=== PATIENT | male | born 1975 | race African-American/Black ===

== ENCOUNTER 2022-09-19 14:36 | Inpatient (IN) | payer OTHER ==
[~2022-09-19 14:36] MED LIST: Iopamidol 300 61% 100 ML VIAL FS ONE
[2022-09-19 15:43] LABS: Lavender RECEIVED; Red RECEIVED
[2022-09-19 15:51] LABS: #Basophils 0.1 10x3/uL (0.0-0.2); #Eosinphils 0.3 10x3/uL (0.0-0.5); #Monocytes 0.6 10x3/uL (0.0-1.1); #Neutrophils 5.4 10x3/uL (1.5-8.4); %Basophils 0.6 % (0.0-2.0); %Eosinophils 2.9 % (0.0-6.0); %Lymphocytes 28.5 % (18.0-47.0); %Monocytes 6.7 % (0.0-10.0); %Neutrophils 61.1 % (40.0-75.0); Hemoglobin 12.5 g/dL (13.5-17.5); Mean Corpuscular HGB CONC 31.2 g/dL (32.0-36.0); Mean Corpuscular Hemoglobin 27.1 pg (27.0-33.0); Mean Corpuscular Volume 86.8 fl (81.2-95.1); Mean Platelet Volume 9.6 fl (7.4-10.4); Platelet Count 268 10x3/uL (150-450); RBC Distribution Width 14.1 % (11.5-14.5); Red Blood Cell (RBC) Count 4.62 10x6/uL (4.32-5.72); White Blood Cell (WBC) Count 8.8 10x3/uL (3.5-10.5)
[2022-09-19 16:03] LABS: ALT (SGPT) 15 U/L (8-55); AST (SGOT) 19 U/L (5-34); Alkaline Phosphatase 224 U/L (40-110); Anion Gap 13 mmol/L (10-20); BUN (Urea Nitrogen) 9 mg/dL (8.9-20.6); Bilirubin, Total 0.4 mg/dL (0.2-1.2); Calc. Creatinine Clearance 0 mL/min (70-130); Calcium 10.6 mg/dL (7.8-10.44); Carbon Dioxide 24 mmol/L (22-29); Chloride 103 mmol/L (98-107); Estimated GFR 115; Glucose 187 mg/dL (70-105); Potassium 3.9 mmol/L (3.5-5.1); Sodium 136 mmol/L (136-145)
[2022-09-19] MEDS ORDERED: Vancomycin 1 GM VIAL ONE (17:35)
[2022-09-19] MEDS ORDERED: Cefepime 2 GM VIAL ONE (17:36)
[2022-09-19 19:15] LABS: Lactic Acid 1.1 mmol/L (0.5-2.2)
[2022-09-19] MEDS ORDERED: HYDROcodone/Acetaminophen 5/325 mg Tablet PO PRN (21:34)
[2022-09-19] MEDS ORDERED: Dextrose 5% in Water 1,000 ML IV PRN (21:38)
[2022-09-19] MEDS ORDERED: Glucagon 1 MG/ML KIT IM PRN (21:38)
[2022-09-19] MEDS ORDERED: Dextrose 50% Abboject 50 ML SYRINGE SLOW IVP PRN (21:38)
[2022-09-19] MEDS ORDERED: HumaLOG 300 UNITS/3 ML VIAL SC PRN (21:38)
[2022-09-19] MEDS ORDERED: Piperacillin/Tazobactam 3.375 GM in Sodium Chloride 0.9% 100 ML IVPB SCH (22:00)
[2022-09-19] MEDS ORDERED: Piperacillin/Tazobactam 3.375 GM VIAL ONE (22:32)
[2022-09-20] MEDS ORDERED: Piperacillin/Tazobactam 3.375 GM in Sodium Chloride 0.9% 100 ML IVPB SCH (01:00)
[2022-09-20 02:30] VITALS: BMI 31.7
[2022-09-20] MEDS ORDERED: Piperacillin/Tazobactam 3.375 GM VIAL ONE ×2 (02:42→10:13)
[2022-09-20] MEDS: Piperacillin/Tazobactam 3.375 GM in Sodium Chloride 0.9% 100 ML IVPB SCH ×2 (02:56→10:17)
[2022-09-20 04:10] LABS: #Eosinphils 0.3 10x3/uL (0.0-0.5); #Monocytes 0.6 10x3/uL (0.0-1.1); #Neutrophils 4.9 10x3/uL (1.5-8.4); %Basophils 0.4 % (0.0-2.0); %Eosinophils 3.5 % (0.0-6.0); %Lymphocytes 27.9 % (18.0-47.0); %Monocytes 7.4 % (0.0-10.0); %Neutrophils 60.5 % (40.0-75.0); Hemoglobin 11.2 g/dL (13.5-17.5); Mean Corpuscular HGB CONC 32.3 g/dL (32.0-36.0); Mean Corpuscular Hemoglobin 27.1 pg (27.0-33.0); Mean Platelet Volume 9.3 fl (7.4-10.4); Platelet Count 259 10x3/uL (150-450); Red Blood Cell (RBC) Count 4.13 10x6/uL (4.32-5.72)
[2022-09-20 04:23] LABS: ALT (SGPT) 14 U/L (8-55); AST (SGOT) 15 U/L (5-34); Albumin 3.6 g/dL (3.5-5.0); Alkaline Phosphatase 193 U/L (40-110); Anion Gap 13 mmol/L (10-20); BUN (Urea Nitrogen) 8 mg/dL (8.9-20.6); Bilirubin, Total 0.6 mg/dL (0.2-1.2); Calc. Creatinine Clearance 201 mL/min (70-130); Calcium 9.9 mg/dL (7.8-10.44); Carbon Dioxide 22 mmol/L (22-29); Chloride 105 mmol/L (98-107); Estimated GFR 118; Globulin 4.4 g/dL (2.4-3.5); Glucose 158 mg/dL (70-105); Potassium 3.5 mmol/L (3.5-5.1); Sodium 136 mmol/L (136-145)
[2022-09-20] MEDS ORDERED: metFORMIN 500 MG TAB PO SCH (08:00)
[2022-09-20] MEDS ORDERED: Acetaminophen 325 MG TAB PO SCH (09:00)
[2022-09-20] MEDS ORDERED: tiZANidine HCl 4 MG TAB PO SCH (09:00)
[2022-09-20] MEDS ORDERED: Clotrimazole 1% Cream 15 GM TUBE TOP SCH (09:00)
[2022-09-20] MEDS ORDERED: Oxybutynin 5 MG TAB PO SCH (09:00)
[2022-09-20] MEDS ORDERED: carBAMazepine 200 MG TAB PO SCH (09:00)
[2022-09-20] MEDS ORDERED: Ascorbic Acid 500 mg Chewable Tablet PO SCH (09:00)
[2022-09-20] MEDS ORDERED: Zinc Sulfate 220 MG CAP PO SCH (09:00)
[2022-09-20] MEDS ORDERED: Multivit, Therapeutic 1 TAB PO SCH (09:00)
[2022-09-20] MEDS ORDERED: Insulin NPH Human Isophane 100 UNITS/ML (10 ML VIAL) SQ SCH (09:00)
[2022-09-20] MEDS ORDERED: Baclofen 10 MG TAB PO SCH (09:00)
[2022-09-20] MEDS ORDERED: Acetaminophen 325 MG TAB ONE (10:12)
[2022-09-20] MEDS ORDERED: metFORMIN 500 MG TAB ONE (10:12)
[2022-09-20] MEDS ORDERED: Zinc Sulfate 220 MG CAP ONE (10:16)
[2022-09-20] MEDS ORDERED: Ascorbic Acid 500 mg Chewable Tablet ONE (10:16)
[2022-09-20 12:45] VITALS: BP 127/57; TEMP 97.8
[2022-09-20] MEDS ORDERED: Insulin NPH Human Isophane 100 UNITS/ML (10 ML VIAL) SC SCH (21:00)
== END 2022-09-20 15:25 | DRG 872 ==
LOC: EEVIPCON 14:36 → CSHERS 14:36 → CSHERHOLD 20:09
PROVIDERS: ADMIT Internal Medicine; ATTEND Family Medicine
DX: A41.89 Other specified sepsis (principal); L03.115 Cellulitis of right lower limb; S82.251A Displaced comminuted fracture of shaft of right tibia, initial encounter for closed fracture; S82.451A Displaced comminuted fracture of shaft of right fibula, initial encounter for closed fracture; E11.628 Type 2 diabetes mellitus with other skin complications; Z79.899 Other long term (current) drug therapy; Z79.4 Long term (current) use of insulin; Z79.84 Long term (current) use of oral hypoglycemic drugs; K21.9 Gastro-esophageal reflux disease without esophagitis; Z98.890 Other specified postprocedural states; M81.0 Age-related osteoporosis without current pathological fracture; Z88.6 Allergy status to analgesic agent; M19.90 Unspecified osteoarthritis, unspecified site; E11.40 Type 2 diabetes mellitus with diabetic neuropathy, unspecified; F44.4 Conversion disorder with motor symptom or deficit; D64.9 Anemia, unspecified; L97.529 Non-pressure chronic ulcer of other part of left foot with unspecified severity; Z99.3 Dependence on wheelchair; E11.621 Type 2 diabetes mellitus with foot ulcer; W18.30XA Fall on same level, unspecified, initial encounter
CPT/HCPCS: 36415; 36416; 80053; 82550; 83605; 85025; 85652; 86140; 87040; 96374; 96375; 97139; J0692; J1650; J1815; J2543; J3370; J3490; Q9967

== ENCOUNTER 2023-04-25 15:05 | Inpatient (IN) | payer OTHER ==
[2023-04-25] MEDS ORDERED: Acetaminophen 500 MG TAB ONE ×2 (15:48→23:05)
[2023-04-25] MEDS ORDERED: cefTRIAXone (ROCEPHIN) 2 GM VIAL ONE (15:48)
[2023-04-25 16:14] LABS: #Basophils 0.1 10x3/uL (0.0-0.2); #Monocytes 1.5 10x3/uL (0.0-1.1); %Basophils 0.3 % (0.0-2.0); %Eosinophils 0.1 % (0.0-6.0); %Lymphocytes 6.1 % (18.0-47.0); %Neutrophils 86.5 % (40.0-75.0); Hematocrit 40.7 % (38.8-50.0); Hemoglobin 13.3 g/dL (13.5-17.5); Mean Corpuscular HGB CONC 32.7 g/dL (32.0-36.0); Mean Corpuscular Hemoglobin 28.1 pg (27.0-33.0); Mean Corpuscular Volume 85.9 fl (81.2-95.1); Mean Platelet Volume 10.1 fl (7.4-10.4); Platelet Count 263 10x3/uL (150-450); RBC Distribution Width 13.8 % (11.5-14.5); Red Blood Cell (RBC) Count 4.74 10x6/uL (4.32-5.72); White Blood Cell (WBC) Count 24.3 10x3/uL (3.5-10.5)
[2023-04-25 16:24] LABS: ALT (SGPT) 27 U/L (8-55); AST (SGOT) 18 U/L (5-34); Albumin 4.3 g/dL (3.5-5.0); Alkaline Phosphatase 121 U/L (40-110); Anion Gap 13 mmol/L (10-20); BUN (Urea Nitrogen) 9 mg/dL (8.9-20.6); Calc. Creatinine Clearance 0 mL/min (70-130); Calcium 8.7 mg/dL (7.8-10.44); Carbon Dioxide 25 mmol/L (22-29); Chloride 101 mmol/L (98-107); Estimated GFR 110; Globulin 4.6 g/dL (2.4-3.5); Glucose 171 mg/dL (70-105); Lipase 9 U/L (8-78); Potassium 4.1 mmol/L (3.5-5.1); Protein, Total 8.9 g/dL (6.0-8.3); Sodium 135 mmol/L (136-145)
[2023-04-25 16:30] LABS: Troponin I Less than 0.010 ng/mL (< 0.028)
[2023-04-25 18:53] LABS: Lactic Acid 2.9 mmol/L (0.5-2.2)
[2023-04-25 20:20] LABS: Bilirubin Neg (Negative); Blood, Urine Negative (Negative); Clarity Clear (Clear); Glucose, Urine (Dipstick) Normal (Negative); Ketone, Urine Negative (Negative); Leukocyte 500 (Negative); Nitrite Positive (Negative); Protein, Urine (Dipstick) 15 mg/dl (Neg-Trace); Urobilinogen Normal mg/dL (Less than 2)
[2023-04-25 20:31] LABS: RBC/HPF 0-3 HPF (0-3)
[2023-04-25 20:32] LABS: Bacteria/HPF 4+ HPF (None Seen); CAUTI Indications for Culture Pelvic or flank pain; Squamous Epithelial 0-3 HPF (0-3); Urine Culture Reflex No No
[2023-04-25] MEDS ORDERED: Acetaminophen 325 MG TAB PO PRN (22:28)
[2023-04-25] MEDS ORDERED: Senokot S 8.6-50 MG TAB PO PRN (22:28)
[2023-04-25] MEDS ORDERED: Glucagon 1 MG/ML KIT IM PRN (22:28)
[2023-04-25] MEDS ORDERED: Guaifenesin DM 100-10/5 ML UDCUP PO PRN (22:28)
[2023-04-25] MEDS ORDERED: HYDROcodone/Acetaminophen 5/325 mg Tablet PO PRN (22:28)
[2023-04-25] MEDS ORDERED: Calcium Carbonate 500 MG ChewTAB PO PRN (22:28)
[2023-04-25] MEDS ORDERED: Dextrose 5% in Water 1,000 ML IV PRN (22:28)
[2023-04-25] MEDS ORDERED: Ondansetron PF 4 MG/2 ML Vial IVP PRN (22:28)
[2023-04-25] MEDS ORDERED: Dextrose 50% Abboject 50 ML SYRINGE SLOW IVP PRN (22:28)
[2023-04-25] MEDS ORDERED: Vancomycin 1.5 GRAM/300 ML BAG 1.5 GM in Premix 1 BAG IVPB ONE (22:45)
[2023-04-26] MEDS: Lactated Ringer's 1,000 ML IV SCH ×4 (01:24→23:57)
[2023-04-26 01:32] VITALS: BMI 30.3
[2023-04-26 02:48] LABS: SARS-CoV-2 NAA Rapid Test Not Detected (NotDetected)
[2023-04-26 03:31] LABS: #Eosinphils 0.1 10x3/uL (0.0-0.5); #Monocytes 0.8 10x3/uL (0.0-1.1); #Neutrophils 13.2 10x3/uL (1.5-8.4); %Basophils 0.3 % (0.0-2.0); %Eosinophils 0.4 % (0.0-6.0); %Lymphocytes 8.9 % (18.0-47.0); %Monocytes 5.2 % (0.0-10.0); %Neutrophils 84.6 % (40.0-75.0); Hematocrit 34.2 % (38.8-50.0); Hemoglobin 11.4 g/dL (13.5-17.5); Mean Corpuscular HGB CONC 33.3 g/dL (32.0-36.0); Mean Corpuscular Hemoglobin 28.1 pg (27.0-33.0); Mean Corpuscular Volume 84.4 fl (81.2-95.1); Mean Platelet Volume 10.3 fl (7.4-10.4); Platelet Count 219 10x3/uL (150-450); RBC Distribution Width 13.9 % (11.5-14.5); Red Blood Cell (RBC) Count 4.05 10x6/uL (4.32-5.72); White Blood Cell (WBC) Count 15.6 10x3/uL (3.5-10.5)
[2023-04-26 03:50] LABS: Lactic Acid 0.9 mmol/L (0.5-2.2)
[2023-04-26 03:53] LABS: Anion Gap 14 mmol/L (10-20); BUN (Urea Nitrogen) 8 mg/dL (8.9-20.6); Calc. Creatinine Clearance 209 mL/min (70-130); Calcium 8.1 mg/dL (7.8-10.44); Carbon Dioxide 19 mmol/L (22-29); Chloride 105 mmol/L (98-107); Estimated GFR 117; Glucose 136 mg/dL (70-105); Potassium 3.1 mmol/L (3.5-5.1); Sodium 135 mmol/L (136-145)
[2023-04-26] MEDS ORDERED: Potassium Chloride 20 MEQ TAB PO SCH ×2 (05:15→08:00)
[2023-04-26] MEDS ORDERED: FLU VACC QS2023-24(6MOS UP)/PF 60 MCG/0.5 ML SYRINGE IM ONE (09:00)
[2023-04-26] MEDS: tiZANidine HCl 4 MG TAB PO SCH ×2 (10:23→21:18)
[2023-04-26] MEDS: Acetaminophen 325 MG TAB PO SCH ×2 (10:23→21:18)
[2023-04-26] MEDS: Lisinopril 2.5 MG TAB PO SCH (10:24)
[2023-04-26] MEDS: Ascorbic Acid 500 mg Chewable Tablet PO SCH ×2 (10:24→21:18)
[2023-04-26] MEDS: Multivit, Therapeutic 1 TAB PO SCH (10:25)
[2023-04-26] MEDS: Baclofen 10 MG TAB PO SCH ×4 (10:25→21:18)
[2023-04-26] MEDS: Cefepime 2 GM in Sodium Chloride 0.9% 100 ML IVPB SCH ×2 (10:26→21:17)
[2023-04-26] MEDS: carBAMazepine 200 MG TAB PO SCH ×2 (10:26→21:18)
[2023-04-26] MEDS: Lantus 1000 UNITS/10 ML VIAL SC SCH (10:27)
[2023-04-26] MEDS: Vancomycin 1.5 GRAM/300 ML BAG 1.5 GM in Premix 1 BAG IVPB SCH ×2 (12:32→23:56)
[2023-04-26] MEDS: HumaLOG 300 UNITS/3 ML VIAL SC PRN (18:25)
[2023-04-26] MEDS: Enoxaparin 40 MG (0.4 mL) SYRINGE SC SCH (21:17)
[2023-04-27 04:19] LABS: Anion Gap 12 mmol/L (10-20); BUN (Urea Nitrogen) 7 mg/dL (8.9-20.6); Calc. Creatinine Clearance 216 mL/min (70-130); Calcium 8.5 mg/dL (7.8-10.44); Carbon Dioxide 20 mmol/L (22-29); Chloride 111 mmol/L (98-107); Estimated GFR 118; Glucose 209 mg/dL (70-105); Potassium 3.9 mmol/L (3.5-5.1); Sodium 139 mmol/L (136-145)
[2023-04-27 04:23] LABS: #Eosinphils 0.2 10x3/uL (0.0-0.5); #Monocytes 0.8 10x3/uL (0.0-1.1); #Neutrophils 7.3 10x3/uL (1.5-8.4); %Basophils 0.4 % (0.0-2.0); %Eosinophils 1.5 % (0.0-6.0); %Lymphocytes 20.3 % (18.0-47.0); %Monocytes 7.3 % (0.0-10.0); %Neutrophils 70.1 % (40.0-75.0); Hematocrit 34.6 % (38.8-50.0); Hemoglobin 11.4 g/dL (13.5-17.5); Mean Corpuscular HGB CONC 32.9 g/dL (32.0-36.0); Mean Corpuscular Hemoglobin 27.8 pg (27.0-33.0); Mean Corpuscular Volume 84.4 fl (81.2-95.1); Mean Platelet Volume 10.3 fl (7.4-10.4); Platelet Count 199 10x3/uL (150-450); White Blood Cell (WBC) Count 10.4 10x3/uL (3.5-10.5)
[2023-04-27] MEDS: Lantus 1000 UNITS/10 ML VIAL SC SCH (10:02)
[2023-04-27] MEDS: Acetaminophen 325 MG TAB PO SCH ×2 (10:03→21:15)
[2023-04-27] MEDS: carBAMazepine 200 MG TAB PO SCH ×2 (10:03→21:15)
[2023-04-27] MEDS: Baclofen 10 MG TAB PO SCH ×4 (10:03→21:15)
[2023-04-27] MEDS: tiZANidine HCl 4 MG TAB PO SCH ×2 (10:04→21:14)
[2023-04-27] MEDS: Ascorbic Acid 500 mg Chewable Tablet PO SCH ×2 (10:04→21:15)
[2023-04-27] MEDS: Lisinopril 2.5 MG TAB PO SCH (10:04)
[2023-04-27] MEDS: Multivit, Therapeutic 1 TAB PO SCH (10:04)
[2023-04-27] MEDS: Cefepime 2 GM in Sodium Chloride 0.9% 100 ML IVPB SCH ×2 (10:05→21:14)
[2023-04-27] MEDS: Lactated Ringer's 1,000 ML IV SCH (14:25)
[2023-04-27] MEDS: Enoxaparin 40 MG (0.4 mL) SYRINGE SC SCH (21:14)
[2023-04-27] MEDS: HumaLOG 300 UNITS/3 ML VIAL SC PRN (21:26)
[2023-04-28] MEDS: Lactated Ringer's 1,000 ML IV SCH ×2 (01:45→13:09)
[2023-04-28] MEDS: Acetaminophen 325 MG TAB PO SCH (10:12)
[2023-04-28] MEDS: Lantus 1000 UNITS/10 ML VIAL SC SCH (10:12)
[2023-04-28] MEDS: Baclofen 10 MG TAB PO SCH ×3 (10:13→17:21)
[2023-04-28] MEDS: Multivit, Therapeutic 1 TAB PO SCH (10:13)
[2023-04-28] MEDS: Ascorbic Acid 500 mg Chewable Tablet PO SCH (10:13)
[2023-04-28] MEDS: tiZANidine HCl 4 MG TAB PO SCH (10:13)
[2023-04-28] MEDS: carBAMazepine 200 MG TAB PO SCH (10:14)
[2023-04-28] MEDS: Lisinopril 2.5 MG TAB PO SCH (10:14)
[2023-04-28] MEDS: Cefepime 2 GM in Sodium Chloride 0.9% 100 ML IVPB SCH (10:14)
[2023-04-28 18:20] VITALS: BP 137/77; TEMP 97.7
== END 2023-04-28 19:20 | DRG 698 ==
LOC: CSHERS 15:05 → EEVIPCON 21:58 → CSHERHOLD 21:58 → CSHTELE 04-26 00:11
PROVIDERS: ADMIT Student in an Organized Health Care Education/Training Program; ATTEND Internal Medicine
DX: T83.511A Infection and inflammatory reaction due to indwelling urethral catheter, initial encounter (principal); A41.59 Other Gram-negative sepsis; E87.20 Acidosis, unspecified; G82.21 Paraplegia, complete; N39.0 Urinary tract infection, site not specified; M70.61 Trochanteric bursitis, right hip; D72.829 Elevated white blood cell count, unspecified; I10 Essential (primary) hypertension; E11.9 Type 2 diabetes mellitus without complications; M19.90 Unspecified osteoarthritis, unspecified site; N31.9 Neuromuscular dysfunction of bladder, unspecified; N35.919 Unspecified urethral stricture, male, unspecified site; Z88.8 Allergy status to other drugs, medicaments and biological substances; Z79.899 Other long term (current) drug therapy; Z79.4 Long term (current) use of insulin; Z98.890 Other specified postprocedural states; Z11.52 Encounter for screening for COVID-19
CPT/HCPCS: 0241U; 36415; 36416; 74177; 80048; 80053; 81001; 83605; 83690; 84145; 84484; 85025; 87040; 87077; 87086; 87186; 93005; 96374; J0692; J0696; J1650; J1815; J3370; J3490; J7120; Q9967

== ENCOUNTER 2023-05-05 16:16 | Emergency (ER) | payer OTHER | END 2023-05-05 19:15 | disposition home or self-care (01) | LOC: CSHERS 16:16 → EEVIPCON 16:16 → CSHERS 19:15 | DX: M25.475 Effusion, left foot (principal); E11.9 Type 2 diabetes mellitus without complications; K21.9 Gastro-esophageal reflux disease without esophagitis; D64.9 Anemia, unspecified; I10 Essential (primary) hypertension; F41.9 Anxiety disorder, unspecified; F32.9 Major depressive disorder, single episode, unspecified ==